=== PATIENT | female | born 1970 | race Caucasian/White ===

== ENCOUNTER 2019-12-17 06:16 | Inpatient (IN) ==
[2019-12-17] MEDS ORDERED: ANCEF 1 GRAM IV PREMIX* 1 G/50 ML BAG IV ONE (06:40)
[2019-12-17] MEDS ORDERED: D5 1/2 NS 1000 ML 1,000 ML IV ONE (06:41)
[2019-12-17] MEDS ORDERED: ANCEF VIAL 1 GRAM IVP ONE (06:44)
[2019-12-17] MEDS ORDERED: DECADRON INJ ONE (06:54)
[2019-12-17] MEDS ORDERED: FENTANYL INJ 250 mcg ONE (06:54)
[2019-12-17] MEDS ORDERED: METHYLENE BLUE 1% INJ ONE (07:00)
[2019-12-17 07:06] VITALS: BMI 25.9
[2019-12-17] MEDS ORDERED: LR 1000 ML IV 1,000 ML IV ONE (08:33)
[2019-12-17] MEDS ORDERED: LTA KIT LIDOCAINE 4% ONE (08:42)
[2019-12-17] MEDS ORDERED: QUELICIN (OR ANECTINE) ONE (08:42)
[2019-12-17] MEDS ORDERED: ROBINUL ONE (08:42)
[2019-12-17] MEDS ORDERED: NORCURON INJ 10 MG VIAL ONE (08:42)
[2019-12-17] MEDS ORDERED: ZOFRAN INJ 4 MG VIAL ONE (08:42)
[2019-12-17] MEDS ORDERED: NEOSTIGMINE INJ ONE (08:42)
[2019-12-17] MEDS ORDERED: EPHEDRINE SULFATE INJ ONE (08:42)
[2019-12-17] MEDS ORDERED: DIPRIVAN VIAL ONE (08:42)
[2019-12-17] MEDS ORDERED: SUPRANE ONE (08:42)
[2019-12-17] MEDS ORDERED: XYLOCAINE 2 % (PLAIN) ONE (08:42)
[2019-12-17] MEDS ORDERED: VERSED ONE (08:42)
[2019-12-17] MEDS ORDERED: ZOFRAN INJ 4 MG VIAL IVP PRN (09:36)
[2019-12-17] MEDS ORDERED: DILAUDID INJ ONE ×3 (09:36→09:55)
[2019-12-17] MEDS ORDERED: REGLAN INJ 10 MG VIAL IVP PRN (09:36)
[2019-12-17] MEDS ORDERED: DILAUDID INJ IVP PRN (09:36)
[2019-12-17] MEDS ORDERED: PHENERGAN INJ 25 MG IM PRN (09:36)
[2019-12-17] MEDS ORDERED: BENADRYL INJ 50 MG VIAL IVP PRN ×2 (09:36→10:32)
[2019-12-17] MEDS ORDERED: TORADOL 30 MG VIAL IVP PRN (10:32)
[2019-12-17] MEDS: D5 1/2 NS 1000 ML 1,000 ML IV SCH ×5 (10:50→18:39)
[2019-12-17] MEDS: MORPHINE SULFATE PCA 30 MG IVP PRN ×3 (10:53→20:36)
[2019-12-17] MEDS: ZOFRAN INJ 4 MG VIAL IVP PRN (20:07)
[2019-12-18] MEDS: D5 1/2 NS 1000 ML 1,000 ML IV SCH ×2 (00:57→02:52)
[2019-12-18] MEDS: MORPHINE SULFATE PCA 30 MG IVP PRN (04:50)
[2019-12-18] MEDS: ZOFRAN INJ 4 MG VIAL IVP PRN ×2 (05:06→09:08)
[2019-12-18 07:08] LABS: BASOPHILS % (AUTO) 0.2 % (0.2-1.0); EOSINOPHILS % (AUTO) 0.4 % (0.9-2.9); HEMATOCRIT 27.7 % (36.0-47.0); HEMOGLOBIN 9.5 g/dL (12.0-16.0); LYMPHOCYTES # (AUTO) 0.8 X10^3/uL (1.3-2.9); LYMPHOCYTES % (AUTO) 9.2 % (21.0-51.0); MEAN CORPUSCULAR HEMOGLOBIN 31.4 pg (27.0-34.0); MEAN CORPUSCULAR HGB CONC 34.1 g/dL (33.0-35.0); MEAN PLATELET VOLUME 8.3 fL (7.4-11.0); MONOCYTES # (AUTO) 1.1 x10^3/uL (0.3-0.8); MONOCYTES % (AUTO) 13.6 % (0.0-13.0); NEUTROPHILS # (AUTO) 6.4 x10^3/uL (2.2-4.8); NEUTROPHILS % (AUTO) 76.6 % (42.0-75.0); PLATELET COUNT 266 X10^3/uL (150.0-450.0); RED BLOOD COUNT 3.01 X10^6/uL (3.5-5.4); RED CELL DISTRIBUTION WIDTH 13.3 % (11.6-16.5); WHITE BLOOD COUNT 8.4 X10^3/uL (3.6-10.0)
[2019-12-18 07:13] LABS: BLOOD UREA NITROGEN 6 mg/dL (7-18); CARBON DIOXIDE 27.1 mmol/L (21-32); CHLORIDE 102 mmol/L (98-107); COR NA(FOR HYPERGLY) 135 mmol/L (136-145); CREATININE 0.75 mg/dL (0.55-1.02); SODIUM 134 mmol/L (136-145); eGFR NON BLACK RACES > 60 (>60)
[2019-12-18] MEDS: COLACE CAP 100 MG PO SCH ×2 (09:03→21:03)
[2019-12-18] MEDS: MOTRIN TAB 800 MG PO PRN ×2 (09:03→12:56)
[2019-12-18] MEDS: HYDROCHLOROTHIAZIDE 25 MG TAB PO SCH (09:03)
[2019-12-18] MEDS: PERCOCET TAB 5/325 MG PO PRN ×2 (14:18→19:34)
[2019-12-18] MEDS: BACTROBAN CREAM TOP SCH ×2 (14:23→21:03)
[2019-12-18] MEDS ORDERED: SYNTHROID 100 mcg TAB PO SCH (16:30)
[2019-12-18] MEDS: FERROUS GLUCONATE PO SCH (17:36)
[2019-12-19] MEDS: PERCOCET TAB 5/325 MG PO PRN ×2 (03:40→08:46)
[2019-12-19] MEDS: BACTROBAN CREAM TOP SCH (06:26)
[2019-12-19] MEDS: FERROUS GLUCONATE PO SCH (06:26)
[2019-12-19 07:55] VITALS: BP 110/62
[2019-12-19] MEDS: COLACE CAP 100 MG PO SCH (08:46)
[2019-12-19] MEDS: HYDROCHLOROTHIAZIDE 25 MG TAB PO SCH (08:46)
== END 2019-12-19 09:20 | disposition home or self-care (01) | DRG 743 ==
LOC: MED/SURG 06:16
PROVIDERS: ADMIT Specialist; ATTEND Specialist
DX: Z79.899 Other long term (current) drug therapy; N92.5 Other specified irregular menstruation; D25.2 Subserosal leiomyoma of uterus
CPT/HCPCS: 36415; 80048; 85025; A4216; A4222; J0330; J0690; J1100; J1170; J2250; J2271; J2405; J2704; J2710; J3010; J3490; J7120; S5010